=== PATIENT | male | born 1965 | race Caucasian/White ===

== ENCOUNTER 2021-10-15 13:17 | Inpatient (IN) | payer MEDICAID ==
[~2021-10-15] VITALS: Ht 175.3 cm; Wt 69.5 kg
[~2021-10-15 13:17] MED LIST: METF-1211 PO
[2021-10-15] MEDS ORDERED: HALOPERIDOL 5 MG TABLET PO PRN (14:15)
[2021-10-15 15:25] VITALS: BP 117/73
[2021-10-15] MEDS ORDERED: DEXTROSE 50%-WATER 25 GM/50 ML SYRINGE IVP PRN (16:00)
[2021-10-15] MEDS: LOSARTAN POTASSIUM 25 MG TABLET PO SCH (16:00)
[2021-10-15] MEDS: INSULIN LISPRO 100 UNITS/ML SQ PRN ×2 (16:52→20:48)
[2021-10-15] MEDS: FAMOTIDINE 20 MG TABLET PO SCH (17:03)
[2021-10-16] MEDS ORDERED: PNEUMOCOCCAL VACCINE POLYVALENT 0.5 ML VIAL [PPSV23] IM. ONE (04:15)
[2021-10-16] MEDS ORDERED: PETROLATUM,WHITE 28 GM JELLY TP PRN (05:30)
[2021-10-16] MEDS ORDERED: ACETAMINOPHEN 325 MG TABLET PO PRN (05:30)
[2021-10-16] MEDS ORDERED: MAGNESIUM HYDROXIDE SUSPENSION 30 ML UDCUP PO PRN (05:30)
[2021-10-16] MEDS ORDERED: GuaiFENesin/D-METHORPHAN [SUGAR-FREE] 200-20MG/10 ML SYRUP UDCUP PO PRN (05:30)
[2021-10-16] MEDS ORDERED: NICOTINE 14 MG/24 HOUR PATCH TD PRN (05:30)
[2021-10-16] MEDS ORDERED: DOCUSATE SODIUM 100 MG CAPSULE PO PRN (05:30)
[2021-10-16] MEDS ORDERED: CloNIDine HCL 0.1 MG TABLET PO PRN (05:30)
[2021-10-16] MEDS ORDERED: MAG HYDROX/AL HYDROX/SIMETH ES 30 ML SUSPENSION UDCUP PO PRN (05:30)
[2021-10-16] MEDS ORDERED: IBUPROFEN 400 MG TABLET PO PRN (05:30)
[2021-10-16] MEDS ORDERED: ALBUTEROL SULFATE HFA 90 MCG/PUFF 8 GM INHALER IH PRN (05:30)
[2021-10-16] MEDS ORDERED: ONDANSETRON HCL 4 MG TABLET PO PRN (05:30)
[2021-10-16 06:26] LABS: GLUCOMETER DEV NAME(LOC) 3E.I 2; GLUCOSE,POINT OF CARE 171 MG/DL (70-110)
[2021-10-16] MEDS: INSULIN LISPRO 100 UNITS/ML SQ PRN ×2 (06:55→16:46)
[2021-10-16 09:30] VITALS: BP 122/67
[2021-10-16] MEDS: FAMOTIDINE 20 MG TABLET PO SCH ×2 (10:57→16:14)
[2021-10-16] MEDS: LOSARTAN POTASSIUM 25 MG TABLET PO SCH (10:57)
[2021-10-16] MEDS: ESCITALOPRAM OXALATE 10 MG TABLET PO SCH (14:50)
[2021-10-16 16:25] VITALS: BP 114/73
[2021-10-16 16:26] LABS: GLUCOMETER DEV NAME(LOC) 3EX.; GLUCOSE,POINT OF CARE 317 MG/DL (70-110)
[2021-10-16] MEDS: MetFORMIN HCL 500 MG TABLET PO SCH (18:03)
[2021-10-16] MEDS: LOPERAMIDE HCL 2 MG CAPSULE PO PRN (20:38)
[2021-10-16 20:51] LABS: GLUCOMETER DEV NAME(LOC) 3E.I 2; GLUCOSE,POINT OF CARE 132 MG/DL (70-110)
[2021-10-17 06:27] LABS: GLUCOMETER DEV NAME(LOC) 3E.I 2; GLUCOSE,POINT OF CARE 186 MG/DL (70-110)
[2021-10-17] MEDS: LOPERAMIDE HCL 2 MG CAPSULE PO PRN (07:01)
[2021-10-17] MEDS: MetFORMIN HCL 500 MG TABLET PO SCH ×2 (07:01→16:42)
[2021-10-17] MEDS: INSULIN LISPRO 100 UNITS/ML SQ PRN ×5 (07:02→22:05)
[2021-10-17 09:26] VITALS: BP 97/60
[2021-10-17] MEDS: FAMOTIDINE 20 MG TABLET PO SCH ×2 (10:13→16:08)
[2021-10-17] MEDS: ESCITALOPRAM OXALATE 10 MG TABLET PO SCH (10:13)
[2021-10-17] MEDS: LOSARTAN POTASSIUM 25 MG TABLET PO SCH (10:13)
[2021-10-17 11:42] LABS: GLUCOMETER DEV NAME(LOC) 3EX.; GLUCOSE,POINT OF CARE 257 MG/DL (70-110)
[2021-10-17 16:19] VITALS: BP 123/71
[2021-10-17 16:46] LABS: GLUCOMETER DEV NAME(LOC) 3EX.; GLUCOSE,POINT OF CARE 182 MG/DL (70-110)
[2021-10-17 20:36] LABS: GLUCOMETER DEV NAME(LOC) 3E.I 2; GLUCOSE,POINT OF CARE 162 MG/DL (70-110)
[2021-10-18 04:58] VITALS: BP 102/67
[2021-10-18 06:31] LABS: GLUCOMETER DEV NAME(LOC) 3E.I 2; GLUCOSE,POINT OF CARE 161 MG/DL (70-110)
[2021-10-18] MEDS: MetFORMIN HCL 500 MG TABLET PO SCH ×2 (06:52→16:43)
[2021-10-18] MEDS: INSULIN LISPRO 100 UNITS/ML SQ PRN ×4 (07:11→21:14)
[2021-10-18] MEDS: FAMOTIDINE 20 MG TABLET PO SCH ×2 (09:01→16:42)
[2021-10-18] MEDS: LOSARTAN POTASSIUM 25 MG TABLET PO SCH (09:01)
[2021-10-18] MEDS: ESCITALOPRAM OXALATE 10 MG TABLET PO SCH (09:01)
[2021-10-18 09:43] VITALS: BP 135/78
[2021-10-18 11:41] LABS: GLUCOMETER DEV NAME(LOC) 3E.I 2; GLUCOSE,POINT OF CARE 177 MG/DL (70-110)
[2021-10-18 16:17] VITALS: BP 121/77
[2021-10-18 17:01] LABS: GLUCOMETER DEV NAME(LOC) 3E.I 2; GLUCOSE,POINT OF CARE 296 MG/DL (70-110)
[2021-10-18 20:36] LABS: GLUCOMETER DEV NAME(LOC) 3E.I 2; GLUCOSE,POINT OF CARE 147 MG/DL (70-110)
[2021-10-19 06:21] LABS: GLUCOMETER DEV NAME(LOC) 3E.I 2; GLUCOSE,POINT OF CARE 169 MG/DL (70-110)
[2021-10-19] MEDS: MetFORMIN HCL 500 MG TABLET PO SCH ×2 (06:54→16:22)
[2021-10-19] MEDS: INSULIN LISPRO 100 UNITS/ML SQ PRN ×3 (06:55→21:10)
[2021-10-19 08:06] VITALS: BP 118/70
[2021-10-19] MEDS: LOSARTAN POTASSIUM 25 MG TABLET PO SCH (08:33)
[2021-10-19] MEDS: ESCITALOPRAM OXALATE 10 MG TABLET PO SCH (08:33)
[2021-10-19] MEDS: FAMOTIDINE 20 MG TABLET PO SCH ×2 (08:33→16:22)
[2021-10-19 11:51] LABS: GLUCOMETER DEV NAME(LOC) 3E.I 2; GLUCOSE,POINT OF CARE 140 MG/DL (70-110)
[2021-10-19] MEDS: LORazepam 2 MG TABLET PO PRN (16:22)
[2021-10-19 16:27] VITALS: BP 109/75
[2021-10-19 16:31] LABS: GLUCOMETER DEV NAME(LOC) 3E.I 2; GLUCOSE,POINT OF CARE 221 MG/DL (70-110)
[2021-10-19 20:41] LABS: GLUCOMETER DEV NAME(LOC) 3E.I 2; GLUCOSE,POINT OF CARE 172 MG/DL (70-110)
[2021-10-20 06:22] LABS: GLUCOMETER DEV NAME(LOC) 3E.I 2; GLUCOSE,POINT OF CARE 139 MG/DL (70-110)
[2021-10-20] MEDS: INSULIN LISPRO 100 UNITS/ML SQ PRN ×3 (06:35→17:34)
[2021-10-20] MEDS: MetFORMIN HCL 500 MG TABLET PO SCH ×2 (06:45→16:24)
[2021-10-20 08:03] VITALS: BP 129/83
[2021-10-20] MEDS: FAMOTIDINE 20 MG TABLET PO SCH ×2 (09:17→16:24)
[2021-10-20] MEDS: LOSARTAN POTASSIUM 25 MG TABLET PO SCH (09:17)
[2021-10-20] MEDS: ESCITALOPRAM OXALATE 10 MG TABLET PO SCH (09:19)
[2021-10-20 11:36] LABS: GLUCOMETER DEV NAME(LOC) 3E.I 2; GLUCOSE,POINT OF CARE 199 MG/DL (70-110)
[2021-10-20 16:21] LABS: GLUCOMETER DEV NAME(LOC) 3E.I 2; GLUCOSE,POINT OF CARE 212 MG/DL (70-110)
[2021-10-20 16:30] VITALS: BP 118/74
[2021-10-20 20:51] LABS: GLUCOMETER DEV NAME(LOC) 3E.I 2; GLUCOSE,POINT OF CARE 129 MG/DL (70-110)
[2021-10-20] MEDS: LORazepam 2 MG TABLET PO PRN (20:55)
[2021-10-21 05:26] LABS: GLUCOMETER DEV NAME(LOC) 3E.I 2; GLUCOSE,POINT OF CARE 147 MG/DL (70-110)
[2021-10-21] MEDS: MetFORMIN HCL 500 MG TABLET PO SCH ×2 (07:02→16:26)
[2021-10-21] MEDS: INSULIN LISPRO 100 UNITS/ML SQ PRN ×4 (07:06→21:09)
[2021-10-21 07:28] LABS: COVID AG,FIA SOURCE NASAL SWAB
[2021-10-21 08:06] VITALS: BP 116/68
[2021-10-21] MEDS: LOSARTAN POTASSIUM 25 MG TABLET PO SCH (09:05)
[2021-10-21] MEDS: FAMOTIDINE 20 MG TABLET PO SCH ×2 (09:05→16:26)
[2021-10-21] MEDS: ESCITALOPRAM OXALATE 10 MG TABLET PO SCH (09:05)
[2021-10-21 11:51] LABS: GLUCOMETER DEV NAME(LOC) 3E.I 2; GLUCOSE,POINT OF CARE 176 MG/DL (70-110)
[2021-10-21 16:16] VITALS: BP 124/75
[2021-10-21] MEDS: LORazepam 2 MG TABLET PO PRN (16:27)
[2021-10-21 20:26] LABS: GLUCOMETER DEV NAME(LOC) 3E.I 2; GLUCOSE,POINT OF CARE 161 MG/DL (70-110)
[2021-10-21 20:42] LABS: GLUCOMETER DEV NAME(LOC) 3E.I 2; GLUCOSE,POINT OF CARE 174 MG/DL (70-110)
[2021-10-22 04:26] VITALS: BP 127/77
[2021-10-22 05:42] LABS: GLUCOMETER DEV NAME(LOC) 3E.I 2; GLUCOSE,POINT OF CARE 121 MG/DL (70-110)
[2021-10-22] MEDS: MetFORMIN HCL 500 MG TABLET PO SCH ×2 (06:34→16:32)
[2021-10-22 08:00] VITALS: BP 142/89
[2021-10-22] MEDS: LOSARTAN POTASSIUM 25 MG TABLET PO SCH (08:45)
[2021-10-22] MEDS: FAMOTIDINE 20 MG TABLET PO SCH ×2 (08:45→16:32)
[2021-10-22] MEDS: ESCITALOPRAM OXALATE 10 MG TABLET PO SCH (08:46)
[2021-10-22 11:06] LABS: GLUCOMETER DEV NAME(LOC) 3E.I 2; GLUCOSE,POINT OF CARE 222 MG/DL (70-110)
[2021-10-22] MEDS: INSULIN LISPRO 100 UNITS/ML SQ PRN ×2 (12:19→17:15)
[2021-10-22 16:01] VITALS: BP 121/76
[2021-10-22 16:36] LABS: GLUCOMETER DEV NAME(LOC) 3E.I 2; GLUCOSE,POINT OF CARE 215 MG/DL (70-110)
[2021-10-22 20:36] LABS: GLUCOMETER DEV NAME(LOC) 3E.I 2; GLUCOSE,POINT OF CARE 138 MG/DL (70-110)
[2021-10-23 06:27] LABS: GLUCOMETER DEV NAME(LOC) 3E.I 2; GLUCOSE,POINT OF CARE 121 MG/DL (70-110)
[2021-10-23] MEDS: MetFORMIN HCL 500 MG TABLET PO SCH ×2 (06:49→16:43)
[2021-10-23] MEDS: INSULIN LISPRO 100 UNITS/ML SQ PRN ×4 (06:49→21:07)
[2021-10-23 08:00] VITALS: BP 161/95
[2021-10-23] MEDS: LOSARTAN POTASSIUM 25 MG TABLET PO SCH (09:00)
[2021-10-23] MEDS: ESCITALOPRAM OXALATE 10 MG TABLET PO SCH (09:01)
[2021-10-23] MEDS: FAMOTIDINE 20 MG TABLET PO SCH ×2 (09:02→16:43)
[2021-10-23 11:21] LABS: GLUCOMETER DEV NAME(LOC) 3E.I 2; GLUCOSE,POINT OF CARE 210 MG/DL (70-110)
[2021-10-23 16:00] VITALS: BP 123/78
[2021-10-23 16:26] LABS: GLUCOMETER DEV NAME(LOC) 3E.I 2; GLUCOSE,POINT OF CARE 228 MG/DL (70-110)
[2021-10-23 20:30] LABS: GLUCOMETER DEV NAME(LOC) 3E.I 2; GLUCOSE,POINT OF CARE 237 MG/DL (70-110)
[2021-10-23] MEDS: ZOLPIDEM TARTRATE 10 MG TABLET PO PRN (23:50)
[2021-10-24 05:56] LABS: GLUCOMETER DEV NAME(LOC) 3E.I 2; GLUCOSE,POINT OF CARE 138 MG/DL (70-110)
[2021-10-24] MEDS: MetFORMIN HCL 500 MG TABLET PO SCH ×2 (06:34→17:05)
[2021-10-24 08:00] VITALS: BP 120/76
[2021-10-24] MEDS: FAMOTIDINE 20 MG TABLET PO SCH ×2 (09:20→17:05)
[2021-10-24] MEDS: ESCITALOPRAM OXALATE 10 MG TABLET PO SCH (09:20)
[2021-10-24] MEDS: LOSARTAN POTASSIUM 25 MG TABLET PO SCH (09:20)
[2021-10-24 11:25] LABS: GLUCOMETER DEV NAME(LOC) 3E.I 2; GLUCOSE,POINT OF CARE 222 MG/DL (70-110)
[2021-10-24] MEDS: INSULIN LISPRO 100 UNITS/ML SQ PRN ×3 (12:00→21:06)
[2021-10-24 16:00] VITALS: BP 105/73
[2021-10-24 17:21] LABS: GLUCOMETER DEV NAME(LOC) 3E.I 2; GLUCOSE,POINT OF CARE 152 MG/DL (70-110)
[2021-10-24 20:54] VITALS: BP 107/77
[2021-10-24 21:21] LABS: GLUCOMETER DEV NAME(LOC) 3E.I 2; GLUCOSE,POINT OF CARE 191 MG/DL (70-110)
[2021-10-24] MEDS: ZOLPIDEM TARTRATE 10 MG TABLET PO PRN (23:56)
[2021-10-25] MEDS: MetFORMIN HCL 500 MG TABLET PO SCH ×2 (06:34→17:30)
[2021-10-25 08:06] LABS: GLUCOMETER DEV NAME(LOC) 3E.I 2; GLUCOSE,POINT OF CARE 138 MG/DL (70-110)
[2021-10-25 09:00] VITALS: BP 143/84
[2021-10-25] MEDS: FAMOTIDINE 20 MG TABLET PO SCH ×2 (09:02→16:27)
[2021-10-25] MEDS: ESCITALOPRAM OXALATE 10 MG TABLET PO SCH (09:03)
[2021-10-25] MEDS: LOSARTAN POTASSIUM 25 MG TABLET PO SCH (09:03)
[2021-10-25 11:41] LABS: GLUCOMETER DEV NAME(LOC) 3E.I 2; GLUCOSE,POINT OF CARE 203 MG/DL (70-110)
[2021-10-25] MEDS: INSULIN LISPRO 100 UNITS/ML SQ PRN ×3 (11:55→20:15)
[2021-10-25 16:00] VITALS: BP 130/81
[2021-10-25 16:25] LABS: GLUCOMETER DEV NAME(LOC) 3E.I 2; GLUCOSE,POINT OF CARE 247 MG/DL (70-110)
[2021-10-25] MEDS: ZOLPIDEM TARTRATE 10 MG TABLET PO PRN (20:13)
[2021-10-25 20:26] LABS: GLUCOMETER DEV NAME(LOC) 3E.I 2; GLUCOSE,POINT OF CARE 147 MG/DL (70-110)
[2021-10-26 05:46] LABS: GLUCOMETER DEV NAME(LOC) 3E.I 2; GLUCOSE,POINT OF CARE 135 MG/DL (70-110)
[2021-10-26] MEDS: MetFORMIN HCL 500 MG TABLET PO SCH ×2 (06:35→17:26)
[2021-10-26 08:00] VITALS: BP 151/92
[2021-10-26] MEDS: FAMOTIDINE 20 MG TABLET PO SCH ×2 (08:19→16:15)
[2021-10-26] MEDS: LOSARTAN POTASSIUM 25 MG TABLET PO SCH (08:20)
[2021-10-26] MEDS: ESCITALOPRAM OXALATE 10 MG TABLET PO SCH (08:20)
[2021-10-26] MEDS: INSULIN LISPRO 100 UNITS/ML SQ PRN ×3 (11:32→20:16)
[2021-10-26 11:41] LABS: GLUCOMETER DEV NAME(LOC) 3E.I 2; GLUCOSE,POINT OF CARE 248 MG/DL (70-110)
[2021-10-26 16:17] VITALS: BP 128/79
[2021-10-26 16:20] LABS: GLUCOMETER DEV NAME(LOC) 3E.I 2; GLUCOSE,POINT OF CARE 184 MG/DL (70-110)
[2021-10-26 20:31] LABS: GLUCOMETER DEV NAME(LOC) 3E.I 2; GLUCOSE,POINT OF CARE 179 MG/DL (70-110)
[2021-10-27 05:31] LABS: GLUCOMETER DEV NAME(LOC) 3E.I 2; GLUCOSE,POINT OF CARE 191 MG/DL (70-110)
[2021-10-27 07:01] LABS: COVID AG,FIA SOURCE NASAL SWAB
[2021-10-27] MEDS: MetFORMIN HCL 500 MG TABLET PO SCH ×2 (07:05→16:42)
[2021-10-27] MEDS: INSULIN LISPRO 100 UNITS/ML SQ PRN ×4 (07:08→20:23)
[2021-10-27 08:30] VITALS: BP 154/84
[2021-10-27] MEDS: ESCITALOPRAM OXALATE 10 MG TABLET PO SCH (08:46)
[2021-10-27] MEDS: FAMOTIDINE 20 MG TABLET PO SCH ×2 (08:46→16:42)
[2021-10-27] MEDS: LOSARTAN POTASSIUM 25 MG TABLET PO SCH (08:46)
[2021-10-27 11:31] LABS: GLUCOMETER DEV NAME(LOC) 3E.I 2; GLUCOSE,POINT OF CARE 228 MG/DL (70-110)
[2021-10-27 16:17] VITALS: BP 121/78
[2021-10-27 16:56] LABS: GLUCOMETER DEV NAME(LOC) 3E.I 2; GLUCOSE,POINT OF CARE 253 MG/DL (70-110)
[2021-10-27] MEDS: ZOLPIDEM TARTRATE 10 MG TABLET PO PRN (20:24)
[2021-10-27 20:36] LABS: GLUCOMETER DEV NAME(LOC) 3E.I 2; GLUCOSE,POINT OF CARE 193 MG/DL (70-110)
[2021-10-28 05:52] LABS: GLUCOMETER DEV NAME(LOC) 3E.I 2; GLUCOSE,POINT OF CARE 151 MG/DL (70-110)
[2021-10-28] MEDS: MetFORMIN HCL 500 MG TABLET PO SCH ×2 (06:32→16:59)
[2021-10-28] MEDS: INSULIN LISPRO 100 UNITS/ML SQ PRN ×4 (06:33→20:28)
[2021-10-28] MEDS: ESCITALOPRAM OXALATE 10 MG TABLET PO SCH (08:47)
[2021-10-28] MEDS: FAMOTIDINE 20 MG TABLET PO SCH ×2 (08:47→16:59)
[2021-10-28] MEDS: LOSARTAN POTASSIUM 25 MG TABLET PO SCH (08:47)
[2021-10-28 09:39] VITALS: BP 132/74
[2021-10-28 10:16] LABS: C.DIFF GDH ANTIGEN, Stool Negative (Negative); C.DIFF TOXINS A&B, Stool Negative (Negative)
[2021-10-28 11:56] LABS: GLUCOMETER DEV NAME(LOC) 3E.I 2; GLUCOSE,POINT OF CARE 179 MG/DL (70-110)
[2021-10-28 16:25] VITALS: BP 125/82
[2021-10-28 16:36] LABS: GLUCOMETER DEV NAME(LOC) 3E.I 2; GLUCOSE,POINT OF CARE 189 MG/DL (70-110)
[2021-10-28] MEDS: ZOLPIDEM TARTRATE 10 MG TABLET PO PRN (20:30)
[2021-10-28 20:36] LABS: GLUCOMETER DEV NAME(LOC) 3E.I 2; GLUCOSE,POINT OF CARE 176 MG/DL (70-110)
[2021-10-29 06:12] LABS: GLUCOMETER DEV NAME(LOC) 3E.I 2; GLUCOSE,POINT OF CARE 136 MG/DL (70-110)
[2021-10-29] MEDS: INSULIN LISPRO 100 UNITS/ML SQ PRN ×4 (06:37→20:37)
[2021-10-29] MEDS: MetFORMIN HCL 500 MG TABLET PO SCH ×2 (06:46→16:26)
[2021-10-29 08:02] VITALS: BP 128/80
[2021-10-29] MEDS: FAMOTIDINE 20 MG TABLET PO SCH ×2 (08:33→16:27)
[2021-10-29] MEDS: ESCITALOPRAM OXALATE 10 MG TABLET PO SCH (08:33)
[2021-10-29] MEDS: LOSARTAN POTASSIUM 25 MG TABLET PO SCH (08:33)
[2021-10-29 11:36] LABS: GLUCOMETER DEV NAME(LOC) 3E.I 2; GLUCOSE,POINT OF CARE 201 MG/DL (70-110)
[2021-10-29 16:00] VITALS: BP 132/72
[2021-10-29 17:02] LABS: GLUCOMETER DEV NAME(LOC) 3E.I 2; GLUCOSE,POINT OF CARE 204 MG/DL (70-110)
[2021-10-29 20:16] LABS: GLUCOMETER DEV NAME(LOC) 3E.I 2; GLUCOSE,POINT OF CARE 161 MG/DL (70-110)
[2021-10-29] MEDS: ZOLPIDEM TARTRATE 10 MG TABLET PO PRN (20:29)
[2021-10-30 05:57] LABS: GLUCOMETER DEV NAME(LOC) 3E.I 2; GLUCOSE,POINT OF CARE 132 MG/DL (70-110)
[2021-10-30] MEDS: MetFORMIN HCL 500 MG TABLET PO SCH ×2 (06:39→17:30)
[2021-10-30 08:00] VITALS: BP 134/80
[2021-10-30] MEDS: ESCITALOPRAM OXALATE 10 MG TABLET PO SCH (09:50)
[2021-10-30] MEDS: LOSARTAN POTASSIUM 25 MG TABLET PO SCH (09:50)
[2021-10-30] MEDS: FAMOTIDINE 20 MG TABLET PO SCH ×2 (09:50→16:24)
[2021-10-30] MEDS: INSULIN LISPRO 100 UNITS/ML SQ PRN ×3 (12:06→20:18)
[2021-10-30 12:16] LABS: GLUCOMETER DEV NAME(LOC) 3E.I 2; GLUCOSE,POINT OF CARE 217 MG/DL (70-110)
[2021-10-30 16:16] LABS: GLUCOMETER DEV NAME(LOC) 3E.I 2; GLUCOSE,POINT OF CARE 229 MG/DL (70-110)
[2021-10-30 16:18] VITALS: BP 105/63
[2021-10-30] MEDS: ZOLPIDEM TARTRATE 10 MG TABLET PO PRN (20:20)
[2021-10-30 20:46] LABS: GLUCOMETER DEV NAME(LOC) 3E.I 2; GLUCOSE,POINT OF CARE 187 MG/DL (70-110)
[2021-10-31 05:46] LABS: GLUCOMETER DEV NAME(LOC) 3E.I 2; GLUCOSE,POINT OF CARE 151 MG/DL (70-110)
[2021-10-31] MEDS: MetFORMIN HCL 500 MG TABLET PO SCH ×2 (06:32→16:46)
[2021-10-31] MEDS: INSULIN LISPRO 100 UNITS/ML SQ PRN ×4 (06:33→21:02)
[2021-10-31 08:00] VITALS: BP 109/62
[2021-10-31] MEDS: LOSARTAN POTASSIUM 25 MG TABLET PO SCH (08:58)
[2021-10-31] MEDS: ESCITALOPRAM OXALATE 10 MG TABLET PO SCH (08:58)
[2021-10-31] MEDS: FAMOTIDINE 20 MG TABLET PO SCH ×2 (08:58→16:46)
[2021-10-31 10:26] VITALS: BP 109/62
[2021-10-31 11:36] LABS: GLUCOMETER DEV NAME(LOC) 3E.I 2; GLUCOSE,POINT OF CARE 196 MG/DL (70-110)
[2021-10-31 16:41] LABS: GLUCOMETER DEV NAME(LOC) 3E.I 2; GLUCOSE,POINT OF CARE 180 MG/DL (70-110)
[2021-10-31 17:06] VITALS: BP 148/86
[2021-10-31 20:51] LABS: GLUCOMETER DEV NAME(LOC) 3E.I 2; GLUCOSE,POINT OF CARE 152 MG/DL (70-110)
[2021-10-31] MEDS: ZOLPIDEM TARTRATE 10 MG TABLET PO PRN (20:55)
[2021-11-01 06:16] LABS: GLUCOMETER DEV NAME(LOC) 3E.I 2; GLUCOSE,POINT OF CARE 129 MG/DL (70-110)
[2021-11-01] MEDS: MetFORMIN HCL 500 MG TABLET PO SCH ×2 (06:43→16:46)
[2021-11-01] MEDS: INSULIN LISPRO 100 UNITS/ML SQ PRN ×4 (06:54→20:43)
[2021-11-01] MEDS: ESCITALOPRAM OXALATE 10 MG TABLET PO SCH (08:43)
[2021-11-01] MEDS: LOSARTAN POTASSIUM 25 MG TABLET PO SCH (08:44)
[2021-11-01] MEDS: FAMOTIDINE 20 MG TABLET PO SCH ×2 (08:44→16:46)
[2021-11-01 08:57] VITALS: BP 144/84
[2021-11-01 11:46] LABS: GLUCOMETER DEV NAME(LOC) 3E.I 2; GLUCOSE,POINT OF CARE 200 MG/DL (70-110)
[2021-11-01 16:25] VITALS: BP 118/78
[2021-11-01 16:26] LABS: GLUCOMETER DEV NAME(LOC) 3E.I 2; GLUCOSE,POINT OF CARE 203 MG/DL (70-110)
[2021-11-01] MEDS: ZOLPIDEM TARTRATE 10 MG TABLET PO PRN (20:37)
[2021-11-01 20:47] LABS: GLUCOMETER DEV NAME(LOC) 3E.I 2; GLUCOSE,POINT OF CARE 171 MG/DL (70-110)
[2021-11-02 06:11] LABS: GLUCOMETER DEV NAME(LOC) 3E.I 2; GLUCOSE,POINT OF CARE 122 MG/DL (70-110)
[2021-11-02] MEDS: MetFORMIN HCL 500 MG TABLET PO SCH ×2 (07:14→16:24)
[2021-11-02 08:00] VITALS: BP 114/65
[2021-11-02] MEDS: ESCITALOPRAM OXALATE 10 MG TABLET PO SCH (08:51)
[2021-11-02] MEDS: LOSARTAN POTASSIUM 25 MG TABLET PO SCH (08:51)
[2021-11-02] MEDS: FAMOTIDINE 20 MG TABLET PO SCH ×2 (08:51→16:24)
[2021-11-02] MEDS: INSULIN LISPRO 100 UNITS/ML SQ PRN ×3 (11:37→20:44)
[2021-11-02 11:42] LABS: GLUCOMETER DEV NAME(LOC) 3E.I 2; GLUCOSE,POINT OF CARE 160 MG/DL (70-110)
[2021-11-02] MEDS ORDERED: ChlorproMAZINE HCL 50 MG/2 ML AMP ONE (12:40)
[2021-11-02] MEDS ORDERED: DiphenhydrAMINE HCL 50 MG/ML VIAL ONE (12:40)
[2021-11-02] MEDS ORDERED: LORazepam 2 MG/ML VIAL IM ONE (12:45)
[2021-11-02] MEDS ORDERED: ChlorproMAZINE HCL 50 MG/2 ML AMP IM ONE (12:45)
[2021-11-02] MEDS ORDERED: DiphenhydrAMINE HCL 50 MG/ML VIAL IM ONE (12:45)
[2021-11-02 16:36] LABS: GLUCOMETER DEV NAME(LOC) 3E.I 2; GLUCOSE,POINT OF CARE 150 MG/DL (70-110)
[2021-11-02 20:56] LABS: GLUCOMETER DEV NAME(LOC) 3E.C; GLUCOSE,POINT OF CARE 205 MG/DL (70-110)
[2021-11-03] MEDS: INSULIN LISPRO 100 UNITS/ML SQ PRN ×4 (06:29→20:18)
[2021-11-03 06:31] LABS: GLUCOMETER DEV NAME(LOC) 3E.C; GLUCOSE,POINT OF CARE 111 MG/DL (70-110)
[2021-11-03] MEDS: MetFORMIN HCL 500 MG TABLET PO SCH ×2 (06:45→17:14)
[2021-11-03 08:38] VITALS: BP 98/64
[2021-11-03] MEDS: ESCITALOPRAM OXALATE 10 MG TABLET PO SCH (08:43)
[2021-11-03] MEDS: FAMOTIDINE 20 MG TABLET PO SCH ×2 (08:43→16:12)
[2021-11-03] MEDS: LOSARTAN POTASSIUM 25 MG TABLET PO SCH (08:43)
[2021-11-03 11:21] LABS: GLUCOMETER DEV NAME(LOC) 3E.C; GLUCOSE,POINT OF CARE 142 MG/DL (70-110)
[2021-11-03 12:14] LABS: COVID AG,FIA SOURCE NASOPHARYNGEAL
[2021-11-03 16:04] VITALS: BP 111/68
[2021-11-03 16:21] LABS: GLUCOMETER DEV NAME(LOC) 3E.C; GLUCOSE,POINT OF CARE 145 MG/DL (70-110)
[2021-11-03] MEDS: ZOLPIDEM TARTRATE 10 MG TABLET PO PRN (20:16)
[2021-11-03 20:26] LABS: GLUCOMETER DEV NAME(LOC) 3E.C; GLUCOSE,POINT OF CARE 167 MG/DL (70-110)
[2021-11-04 06:06] LABS: GLUCOMETER DEV NAME(LOC) 3E.C; GLUCOSE,POINT OF CARE 149 MG/DL (70-110)
[2021-11-04] MEDS: MetFORMIN HCL 500 MG TABLET PO SCH ×2 (06:20→17:31)
[2021-11-04] MEDS: INSULIN LISPRO 100 UNITS/ML SQ PRN ×4 (06:34→20:12)
[2021-11-04 08:12] VITALS: BP 123/76
[2021-11-04] MEDS: LOSARTAN POTASSIUM 25 MG TABLET PO SCH (08:51)
[2021-11-04] MEDS: FAMOTIDINE 20 MG TABLET PO SCH ×2 (08:51→16:02)
[2021-11-04] MEDS: ESCITALOPRAM OXALATE 10 MG TABLET PO SCH (08:51)
[2021-11-04] MEDS: LOPERAMIDE HCL 2 MG CAPSULE PO PRN ×2 (08:55→09:12)
[2021-11-04 11:15] LABS: GLUCOMETER DEV NAME(LOC) 3E.C; GLUCOSE,POINT OF CARE 168 MG/DL (70-110)
[2021-11-04 16:20] VITALS: BP 132/65
[2021-11-04 16:21] LABS: GLUCOMETER DEV NAME(LOC) 3E.C; GLUCOSE,POINT OF CARE 192 MG/DL (70-110)
[2021-11-04] MEDS: ZOLPIDEM TARTRATE 10 MG TABLET PO PRN (20:14)
[2021-11-04 20:25] LABS: GLUCOMETER DEV NAME(LOC) 3E.C; GLUCOSE,POINT OF CARE 240 MG/DL (70-110)
[2021-11-05 06:21] LABS: GLUCOMETER DEV NAME(LOC) 3E.C; GLUCOSE,POINT OF CARE 162 MG/DL (70-110)
[2021-11-05] MEDS: MetFORMIN HCL 500 MG TABLET PO SCH ×2 (06:38→17:59)
[2021-11-05] MEDS: INSULIN LISPRO 100 UNITS/ML SQ PRN ×4 (06:39→20:34)
[2021-11-05] MEDS: LOSARTAN POTASSIUM 25 MG TABLET PO SCH (08:13)
[2021-11-05] MEDS: ESCITALOPRAM OXALATE 10 MG TABLET PO SCH (08:13)
[2021-11-05] MEDS: FAMOTIDINE 20 MG TABLET PO SCH ×2 (08:13→16:06)
[2021-11-05 09:41] VITALS: BP 134/82
[2021-11-05 11:42] LABS: GLUCOMETER DEV NAME(LOC) 3E.C; GLUCOSE,POINT OF CARE 161 MG/DL (70-110)
[2021-11-05 16:21] LABS: GLUCOMETER DEV NAME(LOC) 3E.C; GLUCOSE,POINT OF CARE 245 MG/DL (70-110)
[2021-11-05 16:43] VITALS: BP 140/86
[2021-11-05] MEDS: ZOLPIDEM TARTRATE 10 MG TABLET PO PRN (20:33)
[2021-11-05 20:36] LABS: GLUCOMETER DEV NAME(LOC) 3E.C; GLUCOSE,POINT OF CARE 168 MG/DL (70-110)
[2021-11-06] MEDS: MetFORMIN HCL 500 MG TABLET PO SCH ×2 (06:41→16:32)
[2021-11-06 06:51] LABS: GLUCOMETER DEV NAME(LOC) 3E.C; GLUCOSE,POINT OF CARE 138 MG/DL (70-110)
[2021-11-06] MEDS: ESCITALOPRAM OXALATE 10 MG TABLET PO SCH (08:11)
[2021-11-06] MEDS: FAMOTIDINE 20 MG TABLET PO SCH ×2 (08:11→16:32)
[2021-11-06] MEDS: LOSARTAN POTASSIUM 25 MG TABLET PO SCH (08:11)
[2021-11-06 08:13] VITALS: BP 143/90
[2021-11-06 15:31] LABS: GLUCOMETER DEV NAME(LOC) 3E.C; GLUCOSE,POINT OF CARE 239 MG/DL (70-110)
[2021-11-06 16:02] VITALS: BP 158/89
[2021-11-06] MEDS: LORazepam 2 MG TABLET PO PRN (16:32)
[2021-11-06] MEDS: INSULIN LISPRO 100 UNITS/ML SQ PRN (17:02)
[2021-11-06 20:31] LABS: GLUCOMETER DEV NAME(LOC) 3E.C; GLUCOSE,POINT OF CARE 104 MG/DL (70-110)
[2021-11-07 00:27] VITALS: BP 136/84
[2021-11-07 06:21] LABS: GLUCOMETER DEV NAME(LOC) 3E.C; GLUCOSE,POINT OF CARE 104 MG/DL (70-110)
[2021-11-07] MEDS: MetFORMIN HCL 500 MG TABLET PO SCH ×2 (06:32→17:43)
[2021-11-07 08:27] VITALS: BP 119/55
[2021-11-07] MEDS: FAMOTIDINE 20 MG TABLET PO SCH ×2 (09:38→17:43)
[2021-11-07] MEDS: ESCITALOPRAM OXALATE 10 MG TABLET PO SCH (09:38)
[2021-11-07] MEDS: LOSARTAN POTASSIUM 25 MG TABLET PO SCH (09:38)
[2021-11-07] MEDS: INSULIN LISPRO 100 UNITS/ML SQ PRN ×4 (11:59→20:55)
[2021-11-07 12:16] LABS: GLUCOMETER DEV NAME(LOC) 3E.C; GLUCOSE,POINT OF CARE 228 MG/DL (70-110)
[2021-11-07 16:05] VITALS: BP 143/98
[2021-11-07 17:56] LABS: GLUCOMETER DEV NAME(LOC) 3E.C; GLUCOSE,POINT OF CARE 174 MG/DL (70-110)
[2021-11-07 21:56] LABS: GLUCOMETER DEV NAME(LOC) 3E.C; GLUCOSE,POINT OF CARE 146 MG/DL (70-110)
[2021-11-07] MEDS: ZOLPIDEM TARTRATE 10 MG TABLET PO PRN (23:41)
[2021-11-07] MEDS: LORazepam 2 MG TABLET PO PRN (23:41)
[2021-11-08 06:41] LABS: GLUCOMETER DEV NAME(LOC) 3E.C; GLUCOSE,POINT OF CARE 125 MG/DL (70-110)
[2021-11-08] MEDS: MetFORMIN HCL 500 MG TABLET PO SCH ×2 (06:53→16:26)
[2021-11-08] MEDS: LOSARTAN POTASSIUM 25 MG TABLET PO SCH (07:18)
[2021-11-08] MEDS: FAMOTIDINE 20 MG TABLET PO SCH ×2 (07:18→16:26)
[2021-11-08] MEDS: ESCITALOPRAM OXALATE 10 MG TABLET PO SCH (07:18)
[2021-11-08 08:27] VITALS: BP 122/74
[2021-11-08 11:41] LABS: GLUCOMETER DEV NAME(LOC) 3E.C; GLUCOSE,POINT OF CARE 169 MG/DL (70-110)
[2021-11-08 16:01] VITALS: BP 137/85
[2021-11-08] MEDS: INSULIN LISPRO 100 UNITS/ML SQ PRN ×2 (16:29→20:21)
[2021-11-08 16:40] LABS: GLUCOMETER DEV NAME(LOC) 3E.C; GLUCOSE,POINT OF CARE 152 MG/DL (70-110)
[2021-11-08] MEDS: ZOLPIDEM TARTRATE 10 MG TABLET PO PRN (20:18)
[2021-11-08 20:31] LABS: GLUCOMETER DEV NAME(LOC) 3E.C; GLUCOSE,POINT OF CARE 155 MG/DL (70-110)
[2021-11-09 06:06] LABS: GLUCOMETER DEV NAME(LOC) 3E.C; GLUCOSE,POINT OF CARE 112 MG/DL (70-110)
[2021-11-09] MEDS: MetFORMIN HCL 500 MG TABLET PO SCH ×2 (06:47→16:54)
[2021-11-09] MEDS: FAMOTIDINE 20 MG TABLET PO SCH ×2 (08:13→16:54)
[2021-11-09] MEDS: LOSARTAN POTASSIUM 25 MG TABLET PO SCH (08:13)
[2021-11-09] MEDS: ESCITALOPRAM OXALATE 10 MG TABLET PO SCH (08:13)
[2021-11-09 08:23] VITALS: BP 133/83
[2021-11-09 11:22] LABS: GLUCOMETER DEV NAME(LOC) 3E.C; GLUCOSE,POINT OF CARE 137 MG/DL (70-110)
[2021-11-09] MEDS: INSULIN LISPRO 100 UNITS/ML SQ PRN ×3 (12:49→20:35)
[2021-11-09 16:01] VITALS: BP 130/73
[2021-11-09 16:21] LABS: GLUCOMETER DEV NAME(LOC) 3E.C; GLUCOSE,POINT OF CARE 164 MG/DL (70-110)
[2021-11-09 20:08] VITALS: BP 131/82
[2021-11-09] MEDS: ZOLPIDEM TARTRATE 10 MG TABLET PO PRN (20:32)
[2021-11-09 20:51] LABS: GLUCOMETER DEV NAME(LOC) 3E.C; GLUCOSE,POINT OF CARE 151 MG/DL (70-110)
[2021-11-10] MEDS: INSULIN LISPRO 100 UNITS/ML SQ PRN ×4 (06:31→17:08)
[2021-11-10 06:36] LABS: GLUCOMETER DEV NAME(LOC) 3E.C; GLUCOSE,POINT OF CARE 118 MG/DL (70-110)
[2021-11-10] MEDS: MetFORMIN HCL 500 MG TABLET PO SCH ×2 (06:50→16:54)
[2021-11-10 07:06] LABS: COVID AG,FIA SOURCE NASAL SWAB
[2021-11-10 08:03] VITALS: BP 142/86
[2021-11-10] MEDS: FAMOTIDINE 20 MG TABLET PO SCH ×2 (09:19→17:06)
[2021-11-10] MEDS: LOSARTAN POTASSIUM 25 MG TABLET PO SCH (09:19)
[2021-11-10] MEDS: ESCITALOPRAM OXALATE 10 MG TABLET PO SCH (09:19)
[2021-11-10 12:11] LABS: GLUCOMETER DEV NAME(LOC) 3E.C; GLUCOSE,POINT OF CARE 202 MG/DL (70-110)
[2021-11-10 16:52] VITALS: BP 93/63
[2021-11-10] MEDS: LORazepam 2 MG TABLET PO PRN (16:54)
[2021-11-10 17:06] LABS: GLUCOMETER DEV NAME(LOC) 3E.C; GLUCOSE,POINT OF CARE 199 MG/DL (70-110)
[2021-11-10 20:26] LABS: GLUCOMETER DEV NAME(LOC) 3E.C; GLUCOSE,POINT OF CARE 130 MG/DL (70-110)
[2021-11-11] MEDS: MetFORMIN HCL 500 MG TABLET PO SCH (06:52)
[2021-11-11] MEDS: INSULIN LISPRO 100 UNITS/ML SQ PRN (06:52)
[2021-11-11 08:11] VITALS: BP 119/73
[2021-11-11 08:58] LABS: GLUCOMETER DEV NAME(LOC) 3E.C; GLUCOSE,POINT OF CARE 115 MG/DL (70-110)
[2021-11-11] MEDS: LOSARTAN POTASSIUM 25 MG TABLET PO SCH (09:15)
[2021-11-11] MEDS: FAMOTIDINE 20 MG TABLET PO SCH (09:18)
[2021-11-11] MEDS: ESCITALOPRAM OXALATE 10 MG TABLET PO SCH (09:18)
[2021-11-11] MEDS ORDERED: ESCI10 PO (10:39)
[2021-11-11 11:36] LABS: GLUCOMETER DEV NAME(LOC) 3E.C; GLUCOSE,POINT OF CARE 138 MG/DL (70-110)
[2021-11-11] MEDS ORDERED: METF-1211 PO (12:01)
[2021-11-11] MEDS ORDERED: LOSA25TA2 PO (12:01)
== END 2021-11-11 14:40 | disposition home or self-care (01) | DRG 751 ==
LOC: 3EI 15:25 → 3EC 11-02 17:30
PROVIDERS: ADMIT Psychiatry & Neurology Child & Adolescent Psychiatry; ATTEND Psychiatry & Neurology Child & Adolescent Psychiatry
DX: F33.2 Major depressive disorder, recurrent severe without psychotic features (principal); E11.9 Type 2 diabetes mellitus without complications; R45.851 Suicidal ideations; F10.10 Alcohol abuse, uncomplicated; Z20.822 Contact with and (suspected) exposure to COVID-19; F41.9 Anxiety disorder, unspecified; T38.3X2A Poisoning by insulin and oral hypoglycemic [antidiabetic] drugs, intentional self-harm, initial encounter; T39.312A Poisoning by propionic acid derivatives, intentional self-harm, initial encounter; Z59.00 Homelessness unspecified; Z91.51 Personal history of suicidal behavior; Y92.89 Other specified places as the place of occurrence of the external cause; Z79.899 Other long term (current) drug therapy
CPT/HCPCS: 82962; 83036; 87045; 87081; 87324; 87449; 90732; J1200; J2060; J3230